=== PATIENT | male | born 1955 | race Caucasian/White ===

== ENCOUNTER 2022-05-27 11:35 | Outpatient (CLI) | payer OTHER, SELFPAY ==
--- NOTE | ~2022-05-27 | XR_ITS ---
Left Knee Technique: AP, lateral, and sunrise views were obtained. Clinical History: Osteoarthritis Findings: No fracture or dislocation is seen. Osseous alignment is anatomic. Joint spaces are preserv ed without degenerative or erosive change. Soft tissues are unremarkable. No joint effusion is seen. Impression: Unremarkable left knee radiographs. Reviewed, dictated and finalized at location . Impression: Unremarkable left knee radiographs.
--- NOTE | ~2022-05-27 | XR_ITS ---
Left foot Technique: AP and lateral standing views were obtained. Clinical History: Osteoarthritis Findings: No acute fracture or dislocation is seen. Osseous alignment is anatomic. Plantar calcaneal spur noted. Joint spaces are preserved without erosive or degenerative change. Soft tissues are unrem arkable. Impression: Plantar calcaneal spur, otherwise unremarkable exam. Reviewed, dictated and finalized at [facility]. Impression: Plantar calcaneal spur, otherwise unremarkable exam.
--- NOTE | ~2022-05-27 | XR_ITS ---
Right foot Technique: AP and lateral views were obtained. Clinical History: Osteoarthritis Findings: No acute fracture or dislocation is seen. There is apparent inferior tilt of the talus on l ateral view with respect to the first metatarsal. Plantar calcaneal spur present. Joint spaces are pr eserved without erosive or degenerative change. Soft tissues are unremarkable. Impression: Suggestion of pes planus with inferior tilt of the talus relative to the first metatarsal. Reviewed, dictated and finalized at location [facility]. Impression: Suggestion of pes planus with inferior tilt of the talus relative to the first metatarsal.
--- NOTE | ~2022-05-27 | XR_ITS ---
Bilateral Hands Technique: Bilateral PA, oblique, and lateral views, and ball-catcher's view were obtained. Clinical History: Osteoarthritis Findings: No acute fracture or dislocation is seen. Osseous alignment is anatomic. There is moderate degenerative change of the bilateral first metacarpal phalangeal joints. There is moderate degenerati ve change at the left first carpal metacarpal joint. There is mild degenerative change of the remaini ng interphalangeal joints in the hands bilaterally. There is a chronic nonunited fracture fragment at the distal tuft of the right third distal phalanx. Soft tissues are unremarkable. Impression: Degenerative changes bilaterally, as detailed above. Chronic nonunited fracture fragment at the distal tuft of the right third distal phalanx. Reviewed, dictated and finalized at location M. Impression: Degenerative changes bilaterally, as detailed above. Chronic nonunited fracture fragment at the distal tuft of the right third dista l phalanx.
--- NOTE | ~2022-05-27 | XR_ITS ---
Right Knee Technique: AP, lateral, and sunrise views were obtained. Clinical History: Osteoarthritis Findings: No fracture or dislocation is seen. Osseous alignment is anatomic. Minimal spurring noted m edial joint line and patella. Soft tissues are unremarkable. No joint effusion is seen. Impression: Minimal degenerative spurring, as above. Reviewed, dictated and finalized at location M. Impression: Minimal degenerative spurring, as above.
--- NOTE | ~2022-05-27 | XR_ITS ---
AP and oblique views of the bilateral SI joints CLINICAL HISTORY: Osteoarthritis FINDINGS: Bilateral SI joints are unremarkable. No sclerosis or erosive change. No degenerative orantes e. Visualized bilateral hip joints are intact. Soft tissues are unremarkable. IMPRESSION: Unremarkable exam. Reviewed, dictated and finalized at location M. IMPRESSION: Unremarkable exam.
--- NOTE | ~2022-05-27 | XR_ITS ---
Lumbosacral Spine: AP and lateral views Clinical History: Pain Findings: The normal lordotic curve is maintained. The vertebral bodies and posterior elements are i ntact. The intervertebral disc spaces are preserved. There is mild facet arthropathy at L4-L5 and L5 -S1. The sacroiliac joints are normally outlined. Impression: Facet arthropathy, as above. Reviewed, dictated and finalized at location . Impression: Facet arthropathy, as above.
== END 2022-05-27 11:36 | disposition home or self-care (01) ==
LOC: ANHIMG 11:38
PROVIDERS: PCP Internal Medicine; Visit Provider Internal Medicine
DX: M19.90 Unspecified osteoarthritis, unspecified site (principal); M77.32 Calcaneal spur, left foot; S62.632A Displaced fracture of distal phalanx of right middle finger, initial encounter for closed fracture; M47.816 Spondylosis without myelopathy or radiculopathy, lumbar region; M77.31 Calcaneal spur, right foot
CPT/HCPCS: 72100; 72202; 73130; 73562; 73620